=== PATIENT | male | born 1980 ===

== ENCOUNTER 2021-04-27 22:18 | Emergency (ER) | payer SELFPAY ==
[~2021-04-27] VITALS: Ht 188 cm; Wt 90.9 kg
[2021-04-27 22:23] VITALS: BP 139/78
[2021-04-27] MEDS ORDERED: MethylPREDNISolone SOD SUCC 125 MG/2 ML VIAL IVP ONE (22:30)
[2021-04-27] MEDS ORDERED: DiphenhydrAMINE HCL 50 MG/ML VIAL IVP ONE (22:30)
== END 2021-04-27 23:11 | disposition left against medical advice (07) ==
LOC: EMS 22:21
DX: T78.1XXA Other adverse food reactions, not elsewhere classified, initial encounter (principal); X58.XXXA Exposure to other specified factors, initial encounter
CPT/HCPCS: 96374; 96375; 99284; J1200; J2930